=== PATIENT | male | born 2000 | race Caucasian/White ===

== ENCOUNTER 2025-02-08 13:02 | Emergency (ER) | payer BC ==
[~2025-02-08] VITALS: Ht 188 cm; Wt 122.5 kg
[2025-02-08 13:02] VITALS: BP 131/80; PULSE 85; RESP 18; TEMP 98.6; O2SAT 96
[2025-02-08 13:37] LABS: BASOPHIL % 0.2 % (0.2-1.2); EOSINOPHIL # 0.1 10^3/uL (0.0-0.2); HEMATOCRIT(ML) 44.2 % (37.0-53.0); HEMOGLOBIN 15.8 g/dL (13.9-16.3); LYMPHOCYTES # 2.74 10^3/uL1 (1.0-4.8); LYMPHOCYTES % 31.7 % (24.0-44.0); MEAN CORP HGB 31.2 pg (26-34); MEAN CORP HGB CONCENTRATION 35.7 g/dL (33-36.5); MEAN CORP VOLUME 87.4 fL (78-100); MONOCYTES # 0.8 10^3/uL (0.3-0.8); NEUTROPHILS % 57.8 % (41.0-85.0); PLATELET COUNT 275 10^3/uL (150-400); RED BLOOD CELL 5.06 10^6/uL (4.50-5.90); RED CELL DISTRIBUTION WIDTH 11.7 % (11.5-14.5); WHITE BLOOD CELL 8.6 10^3/uL (4.5-11.0)
[2025-02-08 13:38] LABS: +ADD MANUAL DIFF(NO CHRG) NO
[2025-02-08 13:55] LABS: ALANINE AMINOTRANSFERASE(ML) 105 U/L (12-78); ALBUMIN(ML) 4.5 g/dL (3.4-5.0); ALBUMIN/GLOBULIN RATIO 1.184; ALKALINE PHOSPHATASE 71 U/L (50-136); ANION GAP 11.6; ASPARTATE AMINO TRANSFERASE 42 U/L (0-35); CALCIUM 9.6 mg/dL (8.4-10.5); CARBON DIOXIDE 26.9 mmol/L (20.0-32); CREATININE SERUM 1.09 mg/dL (0.59-1.40); EST GFR, NON-AA 83.1 (>/=60); GLUCOSE 111 mg/dL (74-106); POTASSIUM 3.5 mmol/L (3.6-5.2); SODIUM 138 mmol/L (132-145)
[2025-02-08 13:56] LABS: TROPONIN I HIGH SENSITIVITY < 4 ng/L (0-75)
[2025-02-08 14:18] VITALS: BP 147/82; PULSE 77; RESP 18; O2SAT 96
== END 2025-02-08 14:19 | disposition home or self-care (01) ==
LOC: ER 13:02 → EDBD 13:02 → ER 14:19
DX: R07.89 Other chest pain (principal); R74.8 Abnormal levels of other serum enzymes; F41.9 Anxiety disorder, unspecified; Z88.5 Allergy status to narcotic agent
CPT/HCPCS: 36415; 71045; 80053; 84484; 85025; 85379; 93005; 99284